=== PATIENT | female | born 1945 | race Caucasian/White ===

== ENCOUNTER 2019-12-30 14:29 | Emergency (ER) | payer MEDICARE, MEDICAID ==
[~2019-12-30] VITALS: Ht 165.1 cm; Wt 56.8 kg
[2019-12-30 14:36] VITALS: BP 182/93
--- NOTE | 2019-12-30 15:19 | NUR ---
PT TO ROOM FROM LOBBY AT THIS TIME.
--- NOTE | 2019-12-30 15:45 | NUR ---
PT IN BED, INNER ASPECT OF RIGHT GREAT TOE REDDENED, WARM TO THE TOUCH, TENDER, AND MILDLY EDEMATOUS. PT ATTACHED TO MONITORS. LAB AT BEDSIDE FOR BLOOD DRAW. PT VERBALIZES SOME FINANCIAL CONCERNS THAT FALL UNDER EPS. SOCIAL WORK NOTIFIED AND AT BEDSIDE AT THIS TIME. PT DENIES ANY FURTHER NEEDS OR CONCERNS, CALL LIGHT IN REACH.
[2019-12-30 15:47] LABS: ALANINE AMINOTRANSFERASE 24 U/L (12-78); ANION GAP 4 mmol/L (5-15); CALCIUM 9.7 mg/dL (8.5-10.1); CHLORIDE 103 mmol/L (98-107); CREATININE 0.65 mg/dL (0.55-1.02)
[2019-12-30 15:50] LABS: BASOPHILS % (AUTO) 1 % (0-1); EOSINOPHILS % (AUTO) 1 % (1-7); LYMPHOCYTES % (AUTO) 26 % (22-44); MEAN CORPUSCULAR HEMOGLOBIN 30.1 pg (27.0-34.8); MEAN CORPUSCULAR HGB CONC 33.6 g/dL (32.4-35.8); MEAN PLATELET VOLUME 8.1 fL (7.4-10.4); MONOCYTES % (AUTO) 9 % (2-9); NEUTROPHILS % (AUTO) 63 % (42-75); PLATELET COUNT 228 x10^3/uL (130-400); RED BLOOD COUNT 4.76 x10^6/uL (3.82-5.3); RED CELL DISTRIBUTION WIDTH 13.6 % (9.6-15.2)
[2019-12-30 15:53] LABS: ALKALINE PHOSPHATASE 77 U/L (45-117); BILIRUBIN,TOTAL 0.6 mg/dL (0.2-1.0); C-REACTIVE PROTEIN, QUANT 1.24 mg/dL (0.02-0.49); TOTAL PROTEIN 7.9 g/dL (6.4-8.2)
[2019-12-30 15:55] LABS: MD NO
[2019-12-30 15:56] LABS: HCT (SEDRATE) 42.7 % (34.6-47.8)
== END 2019-12-30 16:37 | disposition home or self-care (01) ==
LOC: ED 16:00
DX: M19.071 Primary osteoarthritis, right ankle and foot (principal)
CPT/HCPCS: 36415; 80053; 85025; 85651; 86140; 99284